=== PATIENT | female | born 1975 | race Hispanic/Latino ===

== ENCOUNTER 2024-04-21 23:50 | Inpatient (IN) | payer OTHER ==
[~2024-04-21] VITALS: Ht 157.5 cm; Wt 62.6 kg
[2024-04-22] VITALS (9 sets, daily range): BP systolic 99–105; BP diastolic 62–69; PULSE 60–73; RESP 16–20; TEMP 97.9–98.6; O2SAT 97–99
[2024-04-22 00:28] LABS: BASOPHILS % 0.2 % (0.0-1.0); EOSINOPHILS # (AUTO) 0.4 (0.0-0.4); EOSINOPHILS % 3.3 % (0.0-6.0); HEMATOCRIT 37.9 % (34.2-44.1); HEMOGLOBIN 12.6 g/dL (12.0-16.0); LYMPHOCYTES # (AUTO) 4.1 (1.0-3.2); MEAN CORPUSCULAR HEMOGLOBIN 27.7 pg (28-32); MEAN CORPUSCULAR HGB CONC 33.2 g/dL (31-35); MEAN CORPUSCULAR VOLUME 83.3 fL (81-99); MONOCYTES % 9.5 % (4.4-11.3); NEUTROPHILS # (AUTO) 5.3 (2.1-6.9); NEUTROPHILS % 48.7 % (38.7-80.0); PLATELET COUNT 366 x10e3/uL (140-360); RED BLOOD COUNT 4.55 x10e6/uL (3.6-5.1); RED CELL DISTRIBUTION WIDTH 14.7 % (11.7-14.4); WHITE BLOOD COUNT 10.84 x10e3/uL (4.8-10.8)
[2024-04-22] MEDS: SODIUM CHLORIDE 0.9% 1000ML 1,000 ML IV STA ×2 (00:34→02:31)
[2024-04-22] MEDS: KETOROLAC TROMETHAMINE 30 MG/ML VIAL IV STA (00:34)
[2024-04-22 00:49] LABS: ALBUMIN 3.9 g/dL (3.5-5.0); ALBUMIN/GLOBULIN RATIO 1.2 (0.8-2.0); ANION GAP 15.2 mmol/L (8-16); BILIRUBIN,TOTAL 0.4 mg/dL (0.2-1.2); CALCIUM 9.2 mg/dL (8.4-10.2); CREATININE, SERUM 0.82 mg/dL (0.57-1.11); POTASSIUM 4.2 mmol/L (3.5-5.1); TOTAL PROTEIN 7.2 g/dL (6.5-8.1)
[2024-04-22] MEDS: Vancomycin IV 1 GM in SODIUM CHLORIDE 0.9% 250ML 250 ML IV ONE (00:57)
[2024-04-22] MEDS: ONDANSETRON HCL INJ 2MG/ML 2ML 2 MG/ML VIAL IV STA (00:57)
[2024-04-22 00:58] LABS: COLOR,URINE ORANGE (YELLOW)
[2024-04-22 00:59] LABS: BILIRUBIN,URINE NEGATIVE (NEGATIVE); CLARITY,URINE CLOUDY (CLEAR); GLUCOSE, URINE NEGATIVE (NEGATIVE); KETONES,URINE NEGATIVE (NEGATIVE); LEUKOCYTE ESTERASE ,URINE SMALL (NEGATIVE); NITRITE,URINE NEGATIVE (NEGATIVE); PH,URINE 6.5 (5 - 7); PREGNANCY TEST, URINE NEGATIVE (NEGATIVE); PROTEIN,URINE DIPSTICK 2+ (NEGATIVE); URINE UROBILINOGEN 0.2 mg/dL (0.2 - 1)
[2024-04-22 01:22] LABS: BACTERIA,URINE MANY /HPF; EPITHELIAL CELLS,URINE MODERATE /LPF; RBC,URINE >50 /HPF (0-5)
[2024-04-22] MEDS: SODIUM CHLORIDE 0.9% 1000ML 1,000 ML IV SCH (04:16)
[2024-04-22] MEDS ORDERED: SODIUM CHLORIDE 0.9% 1000ML 1,000 ML ONE (04:18)
[2024-04-22] MEDS: Vancomycin IV 1 GM in SODIUM CHLORIDE 0.9% 250ML 250 ML IV SCH (14:39)
[2024-04-23] VITALS (12 sets, daily range): BP systolic 94–113; BP diastolic 66–76; PULSE 60–76; RESP 16–18; TEMP 97.9–99; O2SAT 95–99
[2024-04-23 05:53] LABS: EOSINOPHILS # (AUTO) 0.4 (0.0-0.4); EOSINOPHILS % 5.2 % (0.0-6.0); HEMATOCRIT 32.2 % (34.2-44.1); HEMOGLOBIN 10.3 g/dL (12.0-16.0); LYMPHOCYTES # (AUTO) 2.7 (1.0-3.2); LYMPHOCYTES % 38.9 % (18.0-39.1); MEAN CORPUSCULAR HEMOGLOBIN 27.3 pg (28-32); MEAN CORPUSCULAR VOLUME 85.4 fL (81-99); MONOCYTES # (AUTO) 0.9 (0.2-0.8); MONOCYTES % 12.2 % (4.4-11.3); NEUTROPHILS % 43.6 % (38.7-80.0); PLATELET COUNT 258 x10e3/uL (140-360); RED BLOOD COUNT 3.77 x10e6/uL (3.6-5.1); RED CELL DISTRIBUTION WIDTH 14.9 % (11.7-14.4); WHITE BLOOD COUNT 6.97 x10e3/uL (4.8-10.8)
[2024-04-23 06:26] LABS: ALBUMIN 2.9 g/dL (3.5-5.0); ALBUMIN/GLOBULIN RATIO 1.2 (0.8-2.0); ANION GAP 9.9 mmol/L (8-16); BILIRUBIN,TOTAL 0.6 mg/dL (0.2-1.2); CREATININE, SERUM 0.67 mg/dL (0.57-1.11); POTASSIUM 3.9 mmol/L (3.5-5.1); TOTAL PROTEIN 5.3 g/dL (6.5-8.1)
[2024-04-23] MEDS: SOLIFENACIN SUCCINATE 5 MG TAB PO SCH (09:11)
[2024-04-23] MEDS ORDERED: FINASTERIDE5 MG PO (11:31)
[2024-04-23] MEDS ORDERED: NP THYROID60 MG PO (11:31)
[2024-04-23] MEDS: ACETAMINOPHEN 325 MG TAB PO PRN (22:55)
[2024-04-24] VITALS (7 sets, daily range): BP systolic 108–123; BP diastolic 68–81; PULSE 63–78; RESP 16–18; TEMP 98.1–99.8; O2SAT 74–99
[2024-04-25] VITALS: BP 114/81; PULSE 73; RESP 18; TEMP 98.4; O2SAT 100
[2024-04-25 04:00] VITALS: BP 122/74; PULSE 72; RESP 17; TEMP 98.4; O2SAT 100
[2024-04-25 06:39] LABS: ANION GAP 10.8 mmol/L (8-16); CALCIUM 7.7 mg/dL (8.4-10.2); CREATININE, SERUM 0.63 mg/dL (0.57-1.11); POTASSIUM 3.8 mmol/L (3.5-5.1)
[2024-04-25 07:45] VITALS: BP 123/84; PULSE 72; RESP 17; TEMP 98.4; O2SAT 100
[2024-04-25] MEDS ORDERED: IOPAMIDOL 610MG/1ML 300 MG/ML VIAL IV ONE (10:44)
[2024-04-25] MEDS: FENTANYL CITRATE/PF 100MCG/2 ML INJ IV ONE (12:15)
[2024-04-25] MEDS ORDERED: FENTANYL CITRATE/PF 100MCG/2 ML INJ ONE (12:17)
[2024-04-25 12:25] VITALS: BP 127/72; PULSE 78; RESP 18; TEMP 98.2; O2SAT 99
[2024-04-25] MEDS ORDERED: FAMOTIDINE 20 MG/2 ML VIAL IV ONE (12:52)
[2024-04-25] MEDS ORDERED: ONDANSETRON HCL INJ 2MG/ML 2ML 2 MG/ML VIAL ONE (12:52)
[2024-04-25] MEDS ORDERED: SEVOFLURANE INHAL SOLN 250 ML PEN BTL ONE (12:52)
[2024-04-25] MEDS ORDERED: SODIUM CHLORIDE 0.9% INJ 100 ML BAG ONE (12:52)
[2024-04-25] MEDS ORDERED: LIDOCAINE HCL 2% LOCAL INJ 5 ML SDV VIAL INJ ONE (12:52)
[2024-04-25] MEDS ORDERED: ACETAMINOPHEN 1000 MG/100 ML IV ONE (12:52)
[2024-04-25] MEDS ORDERED: METOCLOPRAMIDE HCL 10 MG/2ML VIAL ONE (12:52)
[2024-04-25] MEDS ORDERED: EPHEDRINE SULFATE INJ 50 MG/ML VIAL ONE (12:52)
[2024-04-25] MEDS ORDERED: PROPOFOL IV EMULSION 10 MG/ML 20 ML VIAL ONE (12:52)
[2024-04-25] MEDS ORDERED: DEXMEDETOMIDINE HCL 200 MCG/2 ML VIAL ONE (12:52)
[2024-04-25] MEDS: ONDANSETRON HCL INJ 2MG/ML 2ML 2 MG/ML VIAL IV PRN (13:29)
[2024-04-25] MEDS: Morphine 4mg INJECTION 4 MG/ML INJ IV PRN (13:29)
[2024-04-25] MEDS: PHENAZOPYRIDINE HCL 100 MG TAB PO PRN (15:23)
[2024-04-25] MEDS ORDERED: ACETAMINOPHEN 325 MG TAB PO PRN (19:45)
[2024-04-25 20:00] VITALS: BP 154/88; PULSE 76; RESP 18; TEMP 97.7; O2SAT 95
[2024-04-25] MEDS: PROMETHAZINE 12.5MG/ NACL 0.9% 12.5 MG/50 ML BAG IV PRN (20:21)
[2024-04-25] MEDS: TRAMADOL HCL 50 MG TAB PO PRN (20:38)
[2024-04-26] VITALS (8 sets, daily range): BP systolic 113–126; BP diastolic 73–79; PULSE 76–97; RESP 17–18; TEMP 98.5–101.1; O2SAT 93–97
[2024-04-26 21:55] LABS: BASOPHILS % 0.2 % (0.0-1.0); EOSINOPHILS # (AUTO) 0.3 (0.0-0.4); EOSINOPHILS % 2.8 % (0.0-6.0); HEMOGLOBIN 10.7 g/dL (12.0-16.0); LYMPHOCYTES # (AUTO) 1.2 (1.0-3.2); LYMPHOCYTES % 10.3 % (18.0-39.1); MEAN CORPUSCULAR HEMOGLOBIN 27.9 pg (28-32); MEAN CORPUSCULAR HGB CONC 33.4 g/dL (31-35); MEAN CORPUSCULAR VOLUME 83.3 fL (81-99); MONOCYTES # (AUTO) 1.2 (0.2-0.8); MONOCYTES % 10.5 % (4.4-11.3); NEUTROPHILS # (AUTO) 8.7 (2.1-6.9); PLATELET COUNT 242 x10e3/uL (140-360); RED BLOOD COUNT 3.84 x10e6/uL (3.6-5.1); WHITE BLOOD COUNT 11.39 x10e3/uL (4.8-10.8)
[2024-04-26 22:11] LABS: ANION GAP 13.7 mmol/L (8-16); CALCIUM 7.9 mg/dL (8.4-10.2); POTASSIUM 3.7 mmol/L (3.5-5.1)
[2024-04-26 22:38] LABS: CREATININE, SERUM 0.96 mg/dL (0.57-1.11)
[2024-04-27] VITALS (7 sets, daily range): BP systolic 118–138; BP diastolic 71–85; PULSE 78–109; RESP 17–18; TEMP 99.2–101.1; O2SAT 91–95
[2024-04-27 07:19] LABS: BASOPHILS % 0.2 % (0.0-1.0); EOSINOPHILS # (AUTO) 0.5 (0.0-0.4); EOSINOPHILS % 3.8 % (0.0-6.0); HEMATOCRIT 33.8 % (34.2-44.1); HEMOGLOBIN 11.2 g/dL (12.0-16.0); LYMPHOCYTES # (AUTO) 1.6 (1.0-3.2); LYMPHOCYTES % 13.6 % (18.0-39.1); MEAN CORPUSCULAR HEMOGLOBIN 27.7 pg (28-32); MEAN CORPUSCULAR HGB CONC 33.1 g/dL (31-35); MEAN CORPUSCULAR VOLUME 83.5 fL (81-99); MONOCYTES # (AUTO) 1.3 (0.2-0.8); MONOCYTES % 10.9 % (4.4-11.3); NEUTROPHILS # (AUTO) 8.5 (2.1-6.9); NEUTROPHILS % 71.2 % (38.7-80.0); PLATELET COUNT 228 x10e3/uL (140-360); RED BLOOD COUNT 4.05 x10e6/uL (3.6-5.1); RED CELL DISTRIBUTION WIDTH 14.9 % (11.7-14.4); WHITE BLOOD COUNT 11.97 x10e3/uL (4.8-10.8)
[2024-04-27 07:38] LABS: ANION GAP 14.5 mmol/L (8-16); CALCIUM 7.9 mg/dL (8.4-10.2); CREATININE, SERUM 0.98 mg/dL (0.57-1.11); POTASSIUM 3.5 mmol/L (3.5-5.1)
[2024-04-28 01:04] VITALS: BP 136/78; PULSE 92; RESP 17; TEMP 99.5; O2SAT 93
[2024-04-28 06:15] VITALS: BP 136/78; PULSE 92; RESP 17; TEMP 99.5; O2SAT 93
[2024-04-28 08:09] VITALS: BP 128/87; PULSE 92; RESP 18; TEMP 99.3; O2SAT 94
[2024-04-28] MEDS: FLUCONAZOLE 200 MG/100 ML 100 ML IV SCH (08:34)
[2024-04-28 12:17] VITALS: BP 155/93; PULSE 93; RESP 14; TEMP 99.9; O2SAT 94
[2024-04-28] MEDS: CEFTRIAXONE 2 GM in SODIUM CHLORIDE 0.9% 100 ML IV SCH (15:23)
[2024-04-28 16:06] VITALS: BP 139/91; PULSE 93; RESP 18; TEMP 99.4; O2SAT 95
[2024-04-28 20:00] VITALS: BP 139/90; PULSE 91; RESP 22; TEMP 99.6; O2SAT 94
[2024-04-29] VITALS: BP 144/91; PULSE 85; RESP 22; TEMP 98.8; O2SAT 96
[2024-04-29 04:30] VITALS: BP 126/89; PULSE 76; RESP 20; TEMP 97.9; O2SAT 97
[2024-04-29 08:27] VITALS: BP 155/96; PULSE 82; RESP 19; TEMP 99.1; O2SAT 97
[2024-04-29 09:00] VITALS: BP 155/96; PULSE 82; RESP 16; TEMP 99.1; O2SAT 97
[2024-04-29] MEDS ORDERED: ACETAMINOPHEN325 M1 PO (10:41)
[2024-04-29] MEDS ORDERED: CEPHALEXIN500 MG PO (10:41)
[2024-04-29] MEDS: FUROSEMIDE INJ 10 MG/ML 4 ML VIAL IV ONE (12:43)
[2024-04-29 12:46] VITALS: BP 118/82; PULSE 83; RESP 16; TEMP 98.6; O2SAT 99
== END 2024-04-29 18:17 | disposition home or self-care (01) | DRG 661 ==
LOC: ER 23:55 → ERHOLD 04-22 03:50 → MED/SURG3 04-22 04:27
PROVIDERS: ADMIT Internal Medicine; ATTEND Internal Medicine
PROC: 0TP98DZ Removal of Intraluminal Device from Ureter, Via Natural or Artificial Opening Endoscopic (ICD-10-PCS; 2024-04-25)
PROC: 0TC78ZZ Extirpation of Matter from Left Ureter, Via Natural or Artificial Opening Endoscopic (ICD-10-PCS; 2024-04-25)
PROC: BT131ZZ Fluoroscopy of Bilateral Kidneys using Low Osmolar Contrast (ICD-10-PCS; 2024-04-25)
PROC: BT161ZZ Fluoroscopy of Right Ureter using Low Osmolar Contrast (ICD-10-PCS; 2024-04-25)
PROC: BT171ZZ Fluoroscopy of Left Ureter using Low Osmolar Contrast (ICD-10-PCS; 2024-04-25)
PROC: 0T768ZZ Dilation of Right Ureter, Via Natural or Artificial Opening Endoscopic (ICD-10-PCS; principal; 2024-04-25 10:45)
PROC: 0TP98DZ Removal of Intraluminal Device from Ureter, Via Natural or Artificial Opening Endoscopic (ICD-10-PCS; 2024-04-25 10:45)
DX: N13.6 Pyonephrosis (principal); Q63.1 Lobulated, fused and horseshoe kidney; Q96.9 Turner's syndrome, unspecified; N20.0 Calculus of kidney; I95.9 Hypotension, unspecified; D64.9 Anemia, unspecified; A48.8 Other specified bacterial diseases; B37.9 Candidiasis, unspecified; Z11.52 Encounter for screening for COVID-19; Z87.442 Personal history of urinary calculi; Z88.5 Allergy status to narcotic agent
CPT/HCPCS: 36415; 74018; 74176; 74420; 80048; 80053; 80202; 81001; 81025; 85025; 87040; 87086; 88300; 99284; C1766; C1769; J0692; J0696; J1450; J1885; J1940; J2001; J2270; J2405; J2550; J2765; J7030; J7050; U0002

== ENCOUNTER → 2024-06-21 | Outpatient (REF) | payer OTHER ==
[~2024-06-21] MED LIST: ACETAMINOPHEN325 M1 PO; CEPHALEXIN500 MG PO; FINASTERIDE5 MG PO; FUROSEMIDE INJ 10 MG/ML 4 ML VIAL ONE; NP THYROID60 MG PO
== END ==
LOC: NM 10:37
PROVIDERS: ATTEND Urology
DX: N13.30 Unspecified hydronephrosis (principal)
CPT/HCPCS: 78708; 81025; A9562; J1940